=== PATIENT | female | born 1980 | race Caucasian/White ===

== ENCOUNTER → 2016-07-29 | Outpatient (CLI) | payer MEDICARE, MEDICAID ==
[~2016-07-29] MED LIST: CARI350T21; CLON1TAB PO; DULO60CA PO; HYDR-2595 PO; LEVO75CA PO; METO25TA5 PO; PLAQUENIL PO; PREDPOW63 PO
[2016-07-29 13:00] LABS: Basophils # (auto) 0 uL; Basophils % (auto) 0.4 % (0.0-2.0); Eosinophils # (auto) 0 uL; Eosinophils % (auto) 0.3 % (0.0-7.0); Hematocrit 39.7 % (36.0-46.0); Hemoglobin 12.9 g/dL (12.2-16.2); Lymphocytes % (auto) 46.5 % (10.0-50.0); Mean Corpuscular Hemoglobin 31.3 pg (28.0-32.0); Mean Corpuscular Hgb Conc. 32.4 g/dL (32.0-36.0); Mean Corpuscular Volume 96.5 fL (80.0-100.0); Mean Platelet Volume 7.4 fL (7.4-10.4); Monocytes # (auto) 0.4 uL; Monocytes % (auto) 8.7 % (0.0-12.0); Neutrophils # (auto) 1.9 uL; Neutrophils % (auto) 44.1 % (37.0-80.0); Platelet Count (auto) 323 10^3/uL (140-450); Red Cell Distribution Width 13.9 % (11.6-16.0); White Blood Cell 4.3 10^3/uL (4.4-10.8)
[2016-07-29 14:36] LABS: Albumin 4.1 g/dL (3.4-5.0); BUN/Creatinine Ratio 21.6; Bilirubin, Total 0.3 mg/dL (0.2-1.0); Calcium 8.7 mg/dL (8.5-10.1); Potassium 3.1 mmol/L (3.5-5.1); Total Protein 8.5 g/dL (6.4-8.2)
== END | disposition home or self-care (01) ==
LOC: LAB 11:35
DX: E03.8 Other specified hypothyroidism (principal); M81.0 Age-related osteoporosis without current pathological fracture; M25.50 Pain in unspecified joint; D64.9 Anemia, unspecified; M32.9 Systemic lupus erythematosus, unspecified; Z79.899 Other long term (current) drug therapy; Z79.891 Long term (current) use of opiate analgesic; E03.9 Hypothyroidism, unspecified
CPT/HCPCS: 36415; 80053; 84443; 85025; 85049; 85652; 86141; G0434

== ENCOUNTER → 2016-09-15 | Outpatient (CLI) | payer MEDICARE, MEDICAID ==
[2016-09-15 15:08] LABS: Basophils # (auto) 0 uL; Basophils % (auto) 0.7 % (0.0-2.0); Eosinophils # (auto) 0 uL; Eosinophils % (auto) 0.8 % (0.0-7.0); Hematocrit 38.3 % (36.0-46.0); Hemoglobin 12.6 g/dL (12.2-16.2); Lymphocytes # (auto) 2.4 uL; Lymphocytes % (auto) 44.8 % (10.0-50.0); Mean Corpuscular Hemoglobin 31.8 pg (28.0-32.0); Mean Corpuscular Volume 96.4 fL (80.0-100.0); Mean Platelet Volume 7.3 fL (7.4-10.4); Monocytes # (auto) 0.3 uL; Monocytes % (auto) 6.4 % (0.0-12.0); Neutrophils # (auto) 2.5 uL; Neutrophils % (auto) 47.3 % (37.0-80.0); Platelet Count (auto) 265 10^3/uL (140-450); Red Cell Distribution Width 13.8 % (11.6-16.0); White Blood Cell 5.3 10^3/uL (4.4-10.8)
[2016-09-15 16:02] LABS: Albumin 3.8 g/dL (3.4-5.0); BUN/Creatinine Ratio 22.4; Bilirubin, Total 0.4 mg/dL (0.2-1.0); Calcium 8.6 mg/dL (8.5-10.1); Potassium 4.1 mmol/L (3.5-5.1); Total Protein 8.2 g/dL (6.4-8.2)
== END | disposition home or self-care (01) ==
LOC: LAB 14:43
DX: M25.50 Pain in unspecified joint (principal); I10 Essential (primary) hypertension; D64.9 Anemia, unspecified; M32.10 Systemic lupus erythematosus, organ or system involvement unspecified
CPT/HCPCS: 36415; 80053; 85025; 85652; 86141

== ENCOUNTER → 2016-11-27 | Outpatient (CLI) | payer MEDICARE, MEDICAID | END | disposition home or self-care (01) | LOC: LAB 09:27 | PROVIDERS: ATTEND Internal Medicine | DX: R63.4 Abnormal weight loss (principal) | CPT/HCPCS: 36415; 82565; 84520 ==

== ENCOUNTER → 2017-04-08 | Outpatient (CLI) | payer MEDICARE, MEDICAID ==
[~2017-04-08] MED LIST changes: +CARI-316; -CARI350T21
[2017-04-08 12:29] LABS: Basophils # (auto) 0 uL; Basophils % (auto) 0.2 % (0.0-2.0); Eosinophils # (auto) 0 uL; Eosinophils % (auto) 0.4 % (0.0-7.0); Hematocrit 35.5 % (36.0-46.0); Hemoglobin 11.7 g/dL (12.2-16.2); Lymphocytes # (auto) 1.9 uL; Lymphocytes % (auto) 38.6 % (10.0-50.0); Mean Corpuscular Volume 99.8 fL (80.0-100.0); Mean Platelet Volume 7.4 fL (6.9-10.8); Monocytes # (auto) 0.3 uL; Monocytes % (auto) 5.7 % (0.0-12.0); Neutrophils # (auto) 2.7 uL; Neutrophils % (auto) 55.1 % (37.0-80.0); Platelet Count (auto) 190 10^3/uL (140-450); Red Cell Distribution Width 13.4 % (11.8-14.3)
[2017-04-08 12:37] LABS: Albumin 3.6 g/dL (3.4-5.0); BUN/Creatinine Ratio 28.8; Bilirubin, Total 0.3 mg/dL (0.2-1.0); Potassium 3.6 mmol/L (3.5-5.1); Total Protein 7.9 g/dL (6.4-8.2)
[2017-04-09 08:06] LABS: Thyroid Peroxidase (TPO) Ab 42 IU/mL (0-34)
[2017-04-10 12:08] LABS: Anti-intermyofibrillar Ab Negative (Neg:<1:20); Anti-sarcolemma Antibody Negative (Neg:<1:20)
== END | disposition home or self-care (01) ==
LOC: LAB 11:35
DX: M32.9 Systemic lupus erythematosus, unspecified (principal); M25.50 Pain in unspecified joint; D64.9 Anemia, unspecified; I10 Essential (primary) hypertension; Z79.899 Other long term (current) drug therapy
CPT/HCPCS: 36415; 80053; 85025; 85652; 86141; 86160; 86225; 86235

== ENCOUNTER 2017-09-11 06:20 | Inpatient (IN) | payer MEDICARE, MEDICAID ==
[2017-09-08 17:13] LABS: Basophils # (auto) 0 uL; Basophils % (auto) 0.2 % (0.0-2.0); Eosinophils # (auto) 0 uL; Eosinophils % (auto) 0.4 % (0.0-7.0); Hematocrit 38.3 % (36.0-46.0); Hemoglobin 12.5 g/dL (12.2-16.2); Lymphocytes % (auto) 34.6 % (10.0-50.0); Mean Corpuscular Hemoglobin 32.4 pg (28.0-32.0); Mean Corpuscular Hgb Conc. 32.5 g/dL (32.0-36.0); Mean Corpuscular Volume 99.7 fL (80.0-100.0); Monocytes # (auto) 0.4 uL; Monocytes % (auto) 6.7 % (0.0-12.0); Neutrophils # (auto) 3.4 uL; Neutrophils % (auto) 58.1 % (37.0-80.0); Nucleated Red Blood Cells % 0.2 %; Platelet Count (auto) 220 10^3/uL (140-450); Red Blood Cells 3.84 10^6/uL (4.0-5.20); Red Cell Distribution Width 14.3 % (11.8-14.3); White Blood Cell 5.9 10^3/uL (4.4-10.8)
[2017-09-08 17:24] LABS: INR 0.95 (0.9-1.15); Partial Thromboplastin Time 26.1 sec (22.64-33.71); Prothrombin Time 10.3 sec (9.37-12.3)
[2017-09-08 17:27] LABS: Albumin 3.3 g/dL (3.4-5.0); BUN/Creatinine Ratio 37.8; Bilirubin, Total 0.2 mg/dL (0.2-1.0); Calcium 8.6 mg/dL (8.5-10.1); Potassium 3.7 mmol/L (3.5-5.1); Total Protein 7.5 g/dL (6.4-8.2)
[2017-09-08 17:36] LABS: Urine Bacteria NONE SEEN /hpf (None Seen); Urine Blood Negative /uL (Negative); Urine Mucus FEW (None Seen); Urine Specific Gravity 1.017 (1.001-1.035); Urine WBC 4 /hpf (0 - 5)
[~2017-09-11] VITALS: Ht 170.2 cm; Wt 42.9 kg
[~2017-09-11 06:20] MED LIST changes: -CARI-316; -CLON1TAB PO; -HYDR-2595 PO; +HYDR-531 PO; +IBUP800T24 PO; -METO25TA5 PO; +PRE1T PO; -PREDPOW63 PO
[2017-09-11] MEDS ORDERED: BUPIVACAINE W/ EPINEPH 0.25% INJ 50ML MDV ONE (07:01)
[2017-09-11] MEDS ORDERED: LIDOCAINE 1% HCL (LOCAL ANESTH.) INJ 20ML MDV ONE (07:01)
[2017-09-11] MEDS ORDERED: BUPIVACAINE 0.25% INJ 50ML VIAL ONE (07:02)
[2017-09-11] MEDS ORDERED: BUPIVACAINE HCL 50 ML ONE (07:02)
[2017-09-11] MEDS ORDERED: ceFAZolin 1GM/50ML 50 ML IV ONE (07:13)
[2017-09-11] MEDS ORDERED: LIDOCAINE W/ EPINEPHRINE 2% INJ 20ML VIAL ONE (07:22)
[2017-09-11] MEDS ORDERED: ROPIVACAINE 0.5% (5MG/ML) 20ML AMPULE IJ ONE (07:23)
[2017-09-11] MEDS ORDERED: MIDAZOLAM HCL 1MG/1ML-2 ML VIAL ONE ×3 (07:28→09:42)
[2017-09-11] MEDS ORDERED: LIDOCAINE HCL 2 %PF INJ 10ML AMP IJ ONE (07:28)
[2017-09-11] MEDS ORDERED: HYDROCORTISONE SOD SUCC 100 MG/2ML INJ VIAL IV ONE (07:36)
[2017-09-11] MEDS ORDERED: PROPOFOL 10 MG/ML 20 ML IV ONE (07:38)
[2017-09-11] MEDS ORDERED: METOCLOPRAMIDE HCL 5MG/ml INJ 2ml VIAL ONE (07:39)
[2017-09-11] MEDS ORDERED: fentaNYL CITRATE 100 MCG/2 ML VL ONE ×2 (07:56→09:17)
[2017-09-11] MEDS ORDERED: ePHEDrine SULFATE 50 MG/ML AMP ONE (08:02)
[2017-09-11] MEDS ORDERED: STERILE WATER 10 ML ONE (08:03)
[2017-09-11] MEDS ORDERED: KETOROLAC TROMETH 30 MG/ML 1ML VIAL ONE (09:12)
[2017-09-11] MEDS ORDERED: ONDANSETRON HCL 4 MG/2 ML VIAL IV ONE (09:15)
[2017-09-11] MEDS: LACTATED RINGER'S 1,000 ML IV SCH (09:36)
[2017-09-11] MEDS ORDERED: ACETAMINOPHEN 325 MG TAB PO PRN (09:45)
[2017-09-11] MEDS ORDERED: TEMAZEPAM 15 MG CAP PO PRN (09:45)
[2017-09-11] MEDS: DOCUSATE SOD 100 MG CAP PO SCH ×2 (10:00→22:20)
[2017-09-11] MEDS: fentaNYL CITRATE 100 MCG/2 ML VL IV PRN ×4 (10:15→11:10)
[2017-09-11] MEDS ORDERED: MIDAZOLAM HCL 1MG/1ML-2 ML VIAL IV PRN (10:30)
[2017-09-11] MEDS: KETOROLAC TROMETH 30 MG/ML 1ML VIAL IV PRN ×2 (11:40→20:21)
[2017-09-11] MEDS: ceFAZolin 1GM/50ML 50 ML IV SCH ×3 (12:00→23:46)
[2017-09-11] MEDS: HYDROcodone-ACET 10/325MG TAB PO PRN ×2 (12:14→23:46)
[2017-09-11] MEDS ORDERED: OXYCODONE HCL 5MG TAB PO PRN (13:30)
[2017-09-11] MEDS: SODIUM CHLOR 0.9% PF (SALINE LOCK) 10ML VIAL IV SCH ×2 (14:00→22:29)
[2017-09-11] MEDS ORDERED: DULoxetine HCL 30 MG CAP PO ONE (15:15)
[2017-09-11] MEDS ORDERED: predniSONE 1 MG TAB PO ONE (15:15)
[2017-09-11 17:17] VITALS: BP 101/53
[2017-09-11] MEDS: OXYCODONE HCL 5MG TAB PO PRN (17:48)
[2017-09-11 20:00] VITALS: BP 101/72
[2017-09-11 22:00] VITALS: BP 101/72
[2017-09-11] MEDS: TEMAZEPAM 15 MG CAP PO PRN (22:19)
[2017-09-11] MEDS: oxyCODONE ER 10 MG TAB PO SCH (22:20)
[2017-09-11] MEDS: HYDROXYCHLOROQUINE SULFATE 200 MG TAB PO SCH (22:20)
[2017-09-12] MEDS: KETOROLAC TROMETH 30 MG/ML 1ML VIAL IV PRN ×4 (02:08→23:11)
[2017-09-12] MEDS: HYDROcodone-ACET 10/325MG TAB PO PRN ×3 (03:44→17:19)
[2017-09-12] MEDS: ONDANSETRON HCL 4 MG/2 ML VIAL IV PRN ×2 (03:44→10:05)
[2017-09-12 05:00] VITALS: BP 126/82
[2017-09-12] MEDS: LACTATED RINGER'S 1,000 ML IV SCH (05:36)
[2017-09-12] MEDS: LEVOTHYROXINE SODIUM 100 MCG TAB PO SCH (06:35)
[2017-09-12] MEDS: SODIUM CHLOR 0.9% PF (SALINE LOCK) 10ML VIAL IV SCH ×3 (06:35→21:46)
[2017-09-12] MEDS: OXYCODONE HCL 5MG TAB PO PRN ×3 (08:24→20:18)
[2017-09-12 09:00] VITALS: BP 119/73
[2017-09-12] MEDS: predniSONE 1 MG TAB PO SCH (09:58)
[2017-09-12] MEDS: DULoxetine HCL 30 MG CAP PO SCH (10:03)
[2017-09-12] MEDS: DOCUSATE SOD 100 MG CAP PO SCH ×2 (10:03→21:46)
[2017-09-12] MEDS: oxyCODONE ER 10 MG TAB PO SCH ×2 (10:04→21:47)
[2017-09-12] MEDS: HYDROXYCHLOROQUINE SULFATE 200 MG TAB PO SCH ×2 (10:04→21:47)
[2017-09-12 13:00] VITALS: BP 117/79
[2017-09-12] MEDS: PROMETHAZINE HCL 25 MG/ML 1ML IV PRN ×2 (16:03→20:17)
[2017-09-12 17:00] VITALS: BP 129/84
[2017-09-12 20:00] VITALS: BP 108/75
[2017-09-12 22:00] VITALS: BP 108/75
[2017-09-12] MEDS: TEMAZEPAM 15 MG CAP PO PRN (22:34)
[2017-09-13] MEDS: HYDROcodone-ACET 10/325MG TAB PO PRN ×6 (00:06→22:16)
[2017-09-13] MEDS: LACTATED RINGER'S 1,000 ML IV SCH ×2 (01:36→18:34)
[2017-09-13] MEDS: PROMETHAZINE HCL 25 MG/ML 1ML IV PRN ×5 (03:09→20:07)
[2017-09-13] MEDS: OXYCODONE HCL 5MG TAB PO PRN ×5 (03:10→20:08)
[2017-09-13 05:00] VITALS: BP 100/63
[2017-09-13] MEDS: LEVOTHYROXINE SODIUM 100 MCG TAB PO SCH (06:36)
[2017-09-13] MEDS: KETOROLAC TROMETH 30 MG/ML 1ML VIAL IV PRN ×3 (06:36→18:56)
[2017-09-13] MEDS: SODIUM CHLOR 0.9% PF (SALINE LOCK) 10ML VIAL IV SCH ×3 (06:36→21:20)
[2017-09-13 08:00] VITALS: BP 102/61
[2017-09-13] MEDS: predniSONE 1 MG TAB PO SCH (10:25)
[2017-09-13] MEDS: HYDROXYCHLOROQUINE SULFATE 200 MG TAB PO SCH ×2 (10:25→21:21)
[2017-09-13] MEDS: DOCUSATE SOD 100 MG CAP PO SCH ×2 (10:25→21:20)
[2017-09-13] MEDS: DULoxetine HCL 30 MG CAP PO SCH (10:25)
[2017-09-13] MEDS: oxyCODONE ER 10 MG TAB PO SCH ×2 (10:26→21:21)
[2017-09-13 12:00] VITALS: BP 96/68
[2017-09-13 17:09] VITALS: BP 117/81
[2017-09-13 22:00] VITALS: BP 119/79
[2017-09-13] MEDS: TEMAZEPAM 15 MG CAP PO PRN (22:15)
[2017-09-14] MEDS: PROMETHAZINE HCL 25 MG/ML 1ML IV PRN ×4 (00:02→12:35)
[2017-09-14] MEDS: OXYCODONE HCL 5MG TAB PO PRN ×3 (00:03→12:36)
[2017-09-14] MEDS: KETOROLAC TROMETH 30 MG/ML 1ML VIAL IV PRN ×2 (01:31→08:34)
[2017-09-14] MEDS: HYDROcodone-ACET 10/325MG TAB PO PRN ×3 (03:01→10:48)
[2017-09-14 05:00] VITALS: BP_SYST 108; BP_SYST 125; BP_DIAS 70; BP_DIAS 82
[2017-09-14] MEDS: SODIUM CHLOR 0.9% PF (SALINE LOCK) 10ML VIAL IV SCH ×2 (05:17→15:23)
[2017-09-14] MEDS: LEVOTHYROXINE SODIUM 100 MCG TAB PO SCH (05:54)
[2017-09-14 08:00] VITALS: BP 101/69
[2017-09-14] MEDS: DOCUSATE SOD 100 MG CAP PO SCH (09:48)
[2017-09-14] MEDS: oxyCODONE ER 10 MG TAB PO SCH (09:48)
[2017-09-14] MEDS: DULoxetine HCL 30 MG CAP PO SCH (09:49)
[2017-09-14] MEDS: HYDROXYCHLOROQUINE SULFATE 200 MG TAB PO SCH (09:49)
[2017-09-14] MEDS: predniSONE 1 MG TAB PO SCH (09:49)
[2017-09-14 12:00] VITALS: BP 116/84
[2017-09-14 12:45] VITALS: BP 116/84
== END 2017-09-14 15:10 | disposition home health service (06) | DRG 498 ==
LOC: SUR 06:20 → WEST WING 06:21
PROVIDERS: ADMIT Orthopaedic Surgery; ATTEND Internal Medicine
PROC: 0QBB0ZZ Excision of Right Lower Femur, Open Approach (ICD-10-PCS; principal; 2017-09-11 07:31)
DX: M25.851 Other specified joint disorders, right hip (principal); Z68.1 Body mass index [BMI] 19.9 or less, adult; E03.9 Hypothyroidism, unspecified; I10 Essential (primary) hypertension; M06.9 Rheumatoid arthritis, unspecified; Z79.52 Long term (current) use of systemic steroids; R63.6 Underweight
CPT/HCPCS: 36415; 76000; 80053; 81001; 84702; 85025; 85610; 85730; 87081; 97110; 97116; 97163; 97530; J0690; J1885; J2001; J2250; J2405; J2704; J3490

== ENCOUNTER → 2019-02-07 | Outpatient (CLI) | payer MEDICARE, MEDICAID ==
[~2019-02-07] MED LIST changes: -LEVO75CA PO; +LEVO75CA2 PO
[2019-02-07 09:48] LABS: Basophils # (auto) 0 uL; Basophils % (auto) 0.9 % (0.0-2.0); Eosinophils # (auto) 0 uL; Eosinophils % (auto) 0.9 % (0.0-7.0); Hematocrit 37.6 % (36.0-46.0); Hemoglobin 12.3 g/dL (12.2-16.2); Lymphocytes # (auto) 1.5 uL; Lymphocytes % (auto) 35.6 % (10.0-50.0); Mean Corpuscular Hgb Conc. 32.6 g/dL (32.0-36.0); Mean Corpuscular Volume 101.1 fL (80.0-100.0); Monocytes # (auto) 0.4 uL; Monocytes % (auto) 10.4 % (0.0-12.0); Neutrophils # (auto) 2.2 uL; Neutrophils % (auto) 52.2 % (37.0-80.0); Nucleated Red Blood Cells % 0.1 %; Platelet Count (auto) 176 10^3/uL (140-450); Red Blood Cells 3.72 10^6/uL (4.0-5.20); Red Cell Distribution Width 13.5 % (11.8-14.3); White Blood Cell 4.3 10^3/uL (4.4-10.8)
[2019-02-07 10:36] LABS: Potassium 3.5 mmol/L (3.5-5.1)
[2019-02-07 10:47] LABS: Albumin 3.2 g/dL (3.4-5.0); BUN/Creatinine Ratio 19.2; Bilirubin, Total 0.5 mg/dL (0.2-1.0); Calcium 8.7 mg/dL (8.5-10.1); Total Protein 7.5 g/dL (6.4-8.2)
== END | disposition home or self-care (01) ==
LOC: LAB 08:19
PROVIDERS: ATTEND Physician Assistant
DX: M81.0 Age-related osteoporosis without current pathological fracture (principal); K21.9 Gastro-esophageal reflux disease without esophagitis; M06.9 Rheumatoid arthritis, unspecified; E03.9 Hypothyroidism, unspecified; R53.83 Other fatigue
CPT/HCPCS: 36415; 80053; 80061; 82306; 84443; 85025

== ENCOUNTER 2023-04-01 10:15 | Emergency (ER) | payer MEDICARE, MEDICAID ==
[~2023-04-01] VITALS: Ht 170.2 cm; Wt 50.0 kg
[~2023-04-01 10:15] MED LIST changes: -DULO60CA PO; +DULO60CA41 PO; +IBUP-1456 PO; -IBUP800T24 PO
[2023-04-01 10:54] LABS: Basophils # (auto) 0 10 ^3/uL (0-0.2); Basophils % (auto) 0.1 % (0.0-2.0); Eosinophils # (auto) 0 10 ^3/uL (0-0.8); Eosinophils % (auto) 0.3 % (0.0-7.0); Hemoglobin 13.1 g/dL (12.2-16.2); Lymphocytes # (auto) 1.6 10 ^3/uL (0.4-5.4); Lymphocytes % (auto) 34.5 % (10.0-50.0); Mean Corpuscular Hemoglobin 33.2 pg (28.0-32.0); Mean Corpuscular Hgb Conc. 33.7 g/dL (32.0-36.0); Mean Corpuscular Volume 98.5 fL (80.0-100.0); Monocytes # (auto) 0.3 10 ^3/uL (0-1.3); Monocytes % (auto) 6.2 % (0.0-12.0); Neutrophils # (auto) 2.8 10 ^3/uL (1.6-8.6); Neutrophils % (auto) 58.9 % (37.0-80.0); Nucleated Red Blood Cells % 0.2 %; Red Blood Cells 3.96 10^6/uL (4.0-5.20); Red Cell Distribution Width 13.8 % (11.8-14.3); White Blood Cell 4.8 10^3/uL (4.4-10.8)
[2023-04-01] MEDS ORDERED: HYDROmorphone HCL 2 MG/ML VL/or syr IV ONE (11:00)
[2023-04-01] MEDS ORDERED: SODIUM CHLORIDE 0.9% 1,000 ML IVB ONE (11:00)
[2023-04-01] MEDS ORDERED: PANTOPRAZOLE 40 MG/10 ML VIAL INJ IV ONE (11:00)
[2023-04-01] MEDS ORDERED: PROCHLORPERAZINE EDISYLATE 5 MG/ML 2ML VIAL IV ONE (11:00)
[2023-04-01 11:10] LABS: Alanine Aminotransferase 15 U/L (7-40); Albumin 4.2 g/dL (3.2-4.8); Alkaline Phosphatase 56 U/L (46-116); Anion Gap 6 (5-15); Aspartate Aminotransferase 22 U/L (13-40); BUN/Creatinine Ratio 21.6 (10.0-20.0); Bilirubin, Total 0.5 mg/dL (0.2-1.0); Blood Urea Nitrogen 11 mg/dL (9-23); Calcium 9.2 mg/dL (8.7-10.4); Carbon Dioxide 26 mmol/L (20-30); Chloride 108 mmol/L (98-107); Glucose 88 mg/dL (74-106); Potassium 4.3 mmol/L (3.5-5.1); Sodium 140 mmol/L (136-145); Total Protein 7.3 g/dL (5.7-8.2)
[2023-04-01 11:17] LABS: Urine Bacteria FEW /hpf (None Seen); Urine Blood Negative /uL (Negative); Urine Clarity HAZY (Clear); Urine Color Yellow (Yellow); Urine Mucus FEW (None Seen); Urine Protein, UAD 1+ (Negative); Urine Specific Gravity 1.021 (1.001-1.035); Urine Urobilinogen Normal (Negative); Urine WBC 44 /hpf (0 - 5); Urine pH 7.5 (5.0-8.0)
[2023-04-01] MEDS ORDERED: IOHEXOL 300 MG/ML 100ML BOTTLE IJ ONE (11:19)
[2023-04-01] MEDS ORDERED: ZOFR4T PO (11:46)
[2023-04-01] MEDS ORDERED: PANT40TA2 PO (11:46)
[2023-04-01] MEDS ORDERED: CIPR-173 PO (11:48)
[2023-04-01] MEDS ORDERED: HYDROmorphone HCL 2 MG/ML VL/or syr IM ONE ×2 (12:15)
[2023-04-01 12:52] VITALS: BP 120/78
[2023-04-01 12:55] VITALS: PULSE 71; RESP 18; O2SAT 95
== END 2023-04-01 13:01 | disposition home or self-care (01) ==
LOC: ER 10:15
DX: M06.8A Other specified rheumatoid arthritis, other specified site (principal); N39.0 Urinary tract infection, site not specified; G89.4 Chronic pain syndrome; F12.10 Cannabis abuse, uncomplicated; R11.2 Nausea with vomiting, unspecified; F17.210 Nicotine dependence, cigarettes, uncomplicated; Z88.6 Allergy status to analgesic agent; Z88.8 Allergy status to other drugs, medicaments and biological substances
CPT/HCPCS: 36415; 74177; 80053; 81001; 83690; 85025; 96361; 96372; 96374; 96375; 99285; C9113; J0780; J1170; J7030; Q9967